=== PATIENT | male | born 1950 | race Caucasian/White ===

== ENCOUNTER → 2016-12-27 | Outpatient (CLI) | payer OTHER ==
[~2016-12-27] MED LIST: ALBU90AE INH; ASCO500T7 PO; ATOR40TA78 PO; BACI28.42 TP; BUDE10.2 INH; CALC500T PO; CARB15DR47 LEFTEYE; CARB1TAB44 PO; CARB1TAB48 PO; CEPH-368 PO; DABI150C PO; DIGO250T PO; DIPH25CA61 PO; DOCU240C53 PO; DOXY100C2 PO; DULO20CA45 PO; ENTA200T22 PO; EPLE50TA3 PO; FINA5TAB4 PO; GABA300C10 PO; GLUC1TAB27 PO; HYDR-3138 PO; HYDR28OI3 TP; HYDR60CR2 TP; LACT1CAP24 PO; LISI5TAB7 PO; LOPE2CAP PO; MAGN420T PO; MECL25TA4 PO; METO2.5T PO; METO200T3 PO; MULT-508 PO; PANT40TA5 PO; POTA40LI3 PO; RANI300C PO; ROPI4TAB4 PO; SELE180S7 TP; TAMS0.4C2 PO; TEST1.25 TP; TIOT18CA INH; TORS20TA2 PO; TRAM50TA2 PO; VALP250C59 PO
== END | disposition home or self-care (01) ==
LOC: CVU 10:12
PROVIDERS: ATTEND Nurse Practitioner Family
DX: I08.1 Rheumatic disorders of both mitral and tricuspid valves (principal); I51.7 Cardiomegaly; I37.1 Nonrheumatic pulmonary valve insufficiency; J44.9 Chronic obstructive pulmonary disease, unspecified; I10 Essential (primary) hypertension
CPT/HCPCS: 93306

== ENCOUNTER → 2017-06-29 | Outpatient (CLI) | payer OTHER ==
[~2017-06-29] MED LIST changes: -HYDR-3138 PO; +HYDR-3237 PO; -METO200T3 PO; +METO200T5 PO
== END | disposition home or self-care (01) ==
LOC: CFH 16:42
PROVIDERS: ATTEND Internal Medicine Critical Care Medicine
DX: I51.7 Cardiomegaly (principal); M47.894 Other spondylosis, thoracic region; M95.4 Acquired deformity of chest and rib
CPT/HCPCS: 71020